=== PATIENT | male | born 1995 | race Caucasian/White ===

== ENCOUNTER 2018-07-29 10:15 | Emergency (ER) | payer OTHER ==
[2018-07-29] MEDS ORDERED: TDAP ADULT 0.5 ML INJ (BOOSTRIX) IM ONE (10:50)
--- NOTE | 2018-07-29 10:51 | EDPHY ---
H & P Stated Complaint: R pointer finger injury-avulsion/lac Time Seen by Provider: 07/29/18 10:50 HPI/ROS: HPI: This is a 23-year-old male who presents with Chief Complaint: R pointer finger injury-avulsion/lac Location: Right pointer finger Quality: Injury Duration: Prior to arrival Signs and Symptoms: + bleeding, no radiation, no numbness, no weakness, no tingling, no incontinence, no decreased range of motion, no swelling, + pain, no fever Timing: Acute Severity: [id number] Context: Patient is right-hand dominant, presents from his work with accidentally having cutter and/pounder come down on his right pointer finger. Reports that there is injury to the nail and bleeding. Denies any decreased range of motion/paresthesias/tingling. Unsure of tetanus status. Patient reports that he felt immediate, constant, moderate pain but only describes mild pain at this time. Modifying Factors: Direct pressure Comment: ROS: A comprehensive 10 system review of systems is otherwise negative aside from elements mentioned in the history of present illness. MEDICAL/SURGICAL/SOCIAL HISTORY: Medical history: Generally healthy. Does not take any regular medications. Surgical history: Denies Social history: Employed. CONSTITUTIONAL: Extremely anxious young adult white male, awake and alert, no obvious distress HEENT: Atraumatic and normocephalic. NECK: supple EXTREMITIES: 2/2 pulses, strength 5/5, right 2nd digit/pointer finger shows crush injury at the DI P joint with skin avulsion at the inferior nail bed, complete nail avulsion-no active bleeding. DIP/PIP/MCP flexion/extension intact with good light touch sensation. no deformities, no clubbing, no cyanosis or edema. NEUROLOGICAL: no focal neuro deficits. GCS 15. Light touch sensation intact. SKIN: Warm and dry, no erythema. no rash. Good capillary refill. Source: Patient Exam Limitations: No limitations - Personal History Current Tetanus/Diphtheria Vaccine: Unsure Current Tetanus Diphtheria and Acellular Pertussis (TDAP): Unsure - Medical/Surgical History Hx Asthma: No Hx Chronic Respiratory Disease: No Hx Diabetes: No Hx Cardiac Disease: No Hx Renal Disease: No Hx Cirrhosis: No Hx Alcoholism: No Hx HIV/AIDS: No Hx Splenectomy or Spleen Trauma: No Other PMH: denies - Social History Smoking Status: Never smoked Constitutional: Initial Vital Signs Temperature (C) 36.7 C 07/29/18 10:35 Heart Rate 87 07/29/18 10:35 Respiratory Rate 16 07/29/18 10:35 Blood Pressure 104/67 07/29/18 10:35 O2 Sat (%) 97 07/29/18 10:35 O2 Delivery Mode Room Air Allergies/Adverse Reactions: No Known Allergies Allergy (Unverified 07/29/18 10:34) Home Medications: Medication Instructions Recorded Cephalexin [Keflex (*)] 500 mg PO TID #21 cap 07/29/18 Escitalopram Oxalate 07/29/18 Medical Decision Making - Diagnostics Imaging Results: Imaging Impressions Finger X-Ray 07/29/18 11:12 Impression: Comminuted minimally displaced fracture of the distal phalanx of the index finger with palmar angulation. Procedures: Procedure: Splint placement. A right index finger aluminum finger splint was applied by the Emergency Room arch support technician. After application of the splint I returned and re-examined the patient. The splint was adequately immobilizing the joint and distal to the splint the patient's circulation and sensation was intact. ED Course/Re-evaluation: Tetanus booster given. Local anesthesia provided, copiously irrigated Nail avulsion and skin avulsion is unable to be sutured. Given Keflex; Xeroform and clean sterile dressing applied. Will need to heal by secondary intention. Written and verbal wound care instructions provided. Right finger x-ray ordered and shows minimally displaced tuft closed fracture; aluminum finger splint applied; orthopedic hand referral No signs of neurovascular compromise/tenting of skin/compartment syndrome/ extremities and joints examined above and below area of concern and are neurovascularly intact. This patient was seen under the supervision of my secondary supervising physician. I evaluated care for this patient independently. Discussed this patient with Dr. Douglas. Differential Diagnosis: Differential diagnosis includes but is not limited to tendon injury, nerve injury, nerve injury, phalanx fracture, foreign body. - Data Points Medications Given: Discontinued Medications Diphtheria/Tetanus/Acell Pertussis (Boostrix) 0.5 ml IM .ONCE ONE Stop: 07/29/18 10:51 Last Admin: 07/29/18 11:25 Dose: 0.5 ml Departure - Departure Disposition: Home, Routine, Self-Care Clinical Impression: Crushing injury of right index finger, initial encounter, Closed fracture of tuft of distal phalanx of finger Nail avulsion, finger Qualifiers: Encounter type: initial encounter Qualified Code(s): S61.309A - Unspecified open wound of unspecified finger with damage to nail, initial encounter Avulsion of skin of index finger Qualifiers: Encounter type: initial encounter Qualified Code(s): S61.208A - Unspecified open wound of other finger without damage to nail, initial encounter Condition: Good Instructions: Laceration (ED), Crush Injury (ED), Finger Fracture (ED) Additional Instructions: Wear the splint until seen by orthopedic hand. Keep the dressing dry and in place for 48 hours. After 48 hours, you may remove the dressing; wash the site daily with mild soap and water; then pat dry. Covered with topical antibiotic ointment and clean sterile dressing until fully healed. Take antibiotics as directed. Do not skip a dose. Do not soak finger in water or wash dishes until fully healed. Take Tylenol 650 mg every 4 hours and/or Ibuprofen 600 mg every 8 hours with food as needed for pain. Apply ice for 30 minutes at a time; 2-3 times per day for the next 1-2 days. Follow up with Orthopedics-Hand in 5-7 days at which time they will evaluate and recommend with you if conservative management versus further therapy is indicated. Return to the ER immediately if you experience new or worsening pain, discoloration, numbness, tingling, or any other symptoms that concern you. Referrals: Hakan Kwong MD [Primary Care Provider] - As per Instructions Susanne Crawley MD [Medical Doctor] - As per Instructions Stand Alone Forms: Work Excuse Prescriptions: Cephalexin [Keflex (*)] 500 mg PO TID #21 cap
[2018-07-29] MEDS ORDERED: CEPHALEXIN 500 MG CAP PO ONE (11:58)
[2018-07-29 12:24] VITALS: BP 121/61
== END 2018-07-29 12:40 | disposition home or self-care (01) ==
DX: S67.190A Crushing injury of right index finger, initial encounter (principal); S62.630A Displaced fracture of distal phalanx of right index finger, initial encounter for closed fracture; S61.310A Laceration without foreign body of right index finger with damage to nail, initial encounter; W20.8XXA Other cause of strike by thrown, projected or falling object, initial encounter; Y99.0 Civilian activity done for income or pay; Z23 Encounter for immunization
CPT/HCPCS: L3925